=== PATIENT | female | born 1965 | race Caucasian/White ===

== ENCOUNTER 2018-08-19 16:45 | Emergency (ER) | payer SELFPAY ==
--- NOTE | 2018-08-19 17:56 | RAD REPORT ---
EXAM DESCRIPTION: RAD - Ankle Left 3 View -08/19/2018 5:46 pm CLINICAL HISTORY: Left ankle pain status post fall FINDINGS: Trimalleolar fracture. Fibular fracture fragments are comminuted and moderately displaced with angulation present at the fra cture site. Medial malleolus is avulsed. Tibiotalar dislocation present.
[2018-08-19] MEDS ORDERED: FENTANYL CITR 100 MCG/2 ML ONE (18:44)
[2018-08-19] MEDS ORDERED: ONDANSETRON 4 MG/2 ML VIAL ONE (18:44)
--- NOTE | 2018-08-19 19:18 | RAD REPORT ---
EXAM DESCRIPTION: RAD - Ankle Left 3 View -08/19/2018 7:12 pm CLINICAL HISTORY: Left ankle pain FINDINGS: A splint immobilizes the previously described trimalleolar fracture
--- NOTE | 2018-08-19 20:57 | EDPHYS ---
Physician Documentation [facility] Name: Katt Camarena Age: 53 yrs Sex: Female : 1965 Arrival Date: 08/19/2018 Time: 16:48 Bed 10 Private MD: ED Physician Chele Benavidez HPI: 08/19 18:15 This 53 yrs old Female presents to ER via Wheelchair with complaints of Ankle jmm Injury. 18:15 The patient presents with an injury, pain. Onset: The symptoms/episode began/occurred jmm acutely, just prior to arrival. This is a 53 yea rold female with no chronic medical conditions that presents to the ED with complaints of ankle pain after slipping when stepping out of her shower. patient states that she felt a pop. denies other injury. . 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 - Social history:: Smoking status: Patient/guardian denies using tobacco, Patient/guardian denies using alcohol. - Ebola Screening: : Patient negative for fever greater than or equal to 101.5 degrees Fahrenheit, and additional compatible Ebola Virus Disease symptoms Patient denies exposure to infectious person Patient denies travel to an Ebola-affected area in the 21 days before illness onset. ROS: 18:15 Constitutional: Negative for fever, chills, and weight loss, Cardiovascular: Negative jmm for chest pain, palpitations, and edema, Respiratory: Negative for shortness of breath, cough, wheezing, and pleuritic chest pain. 18:15 MS/extremity: Positive for injury or acute deformity, pain. 18:15 All other systems are negative. Exam: 18:15 Constitutional: This is a well developed, well nourished patient who is awake, alert, jmm and in no acute distress. Head/Face: atraumatic. Eyes: EOMI, no conjunctival erythema appreciated ENT: Moist Mucus Membranes Neck: Trachea midline, Supple Chest/axilla: Normal chest wall appearance and motion. Cardiovascular: Regular rate and rhythm. No edema appreciated Respiratory: Normal respirations, no respiratory distress appreciated Abdomen/GI: Non distended, soft 18:15 Musculoskeletal/extremity: swelling noted to the left ankle and foot, compartments are soft, NVI, full dorsalis pedis pulse. 18:15 Skin: Appearance: Color: normal in color. 18:15 Neuro: Orientation: is normal, Mentation: is normal, Memory: is normal. 18:15 Psych: Behavior/mood is pleasant, cooperative. Vital Signs: 17:30 BP 155 / 83; Pulse 73; Resp 18; Temp 98.0(TE); Pulse Ox 99% on R/A; Weight 88.45 kg; hj Height 5 ft. 1 in. (154.94 cm); Pain 10/10; 19:00 BP 156 / 75; Pulse 75; Resp 19; Temp 98.2; Pulse Ox 100% 2 lpm ; rr5 20:20 BP 152 / 65; Pulse 79; Resp 17; Pulse Ox 98% ; rr5 21:30 BP 158 / 75; Pulse 77; Resp 19; Pulse Ox 99% ; rr5 17:30 Body Mass Index 36.84 (88.45 kg, 154.94 cm) Procedures: 18:15 Splinting: Splint applied to left lateral ankle, lateral aspect of left foot, left jmm Achilles, left heel, left medial ankle, medial aspect of left foot, anterior aspect of left ankle and dorsum of left foot using posterior with stirrups. applied by myself. tech. post reduction film - reveals improved alignment, Examined by me, post splint application: neurovascular intact, 2+ distal pulses palpable, brisk capillary refill noted, Patient tolerated well. Reduction: of the left ankle, using traction, manipulation, Immobilized with posterior splint. Patient tolerated well. Post reduction film - reveals improved alignment. MDM: 18:15 Data reviewed: vital signs, nurses notes. Counseling: I had a detailed discussion with [facility] the patient and/or guardian regarding: the historical points, exam findings, and any diagnostic results supporting the discharge/admit diagnosis, radiology results, the need for outpatient follow up, to return to the emergency department if symptoms worsen or persist or if there are any questions or concerns that arise at home. 18:16 Patient medically screened. [facility] 20:22 ED course: I discussed the patient with Dr. Brown whom will see the patient in [facility] clinic on . patient is given compartment syndrome return precautions. Patient understood and agrees with the plan of care.. 08/19 17:32 Order name: Ankle Left 3 View XRAY; Complete Time: 18:15 08/19 18:52 Order name: Ankle Left 3 View XRAY; Complete Time: 19:25 [facility] 08/19 18:23 Order name: Saline Lock; Complete Time: 18:31 [facility] 08/19 20:22 Order name: Crutches; Complete Time: 21:35 [facility] 08/19 20:22 Order name: Misc. Order: restroom assist; Complete Time: 20:31 [facility] Administered Medications: 18:25 CANCELLED (Duplicate Order): morphine 4 mg IVP once [facility] 18:43 Drug: Zofran 4 mg Route: IVP; Site: left antecubital; iw 21:35 Follow up: Response: No adverse reaction rr5 18:43 Drug: fentaNYL (PF) 100 mcg Route: IVP; Site: left antecubital; iw 21:35 Follow up: Response: No adverse reaction rr5 Disposition: 08/19/18 20:56 Discharged to Home. Impression: Distal Tibia Fracture, Distal Fibular Fracture. - Condition is Stable. - Discharge Instructions: Ankle Fracture. - Prescriptions for Tylenol- Codeine #3 300-30 mg Oral Tablet - take 1 tablet by ORAL route every 6 hours As needed; 20 tablet. - Medication Reconciliation Form, Thank You Letter, Antibiotic Education, Prescription Opioid Use form. - Follow up: Christ Brown MD; When: 2 - 3 days; Reason: Recheck today's complaints, Continuance of care, Re-evaluation by your physician. Signatures: Dispatcher [employer] EDMS Ry Woods PA PA [facility] Ingrid Wilson RN RN Parker Whipple RN RN Micky Mccurdy RN RN rr5 Corrections: (The following items were deleted from the chart) 18:25 18:23 morphine 4 mg IVP once ordered. [facility] 21:37 20:56 08/19/2018 20:56 Discharged to Home. Impression: Distal Tibia Fracture; Distal rr5 Fibular Fracture. Condition is Stable. Forms are Medication Reconciliation Form, Thank You Letter, Antibiotic Education, Prescription Opioid Use. Follow up: Christ Brown; When: 2 - 3 days; Reason: Recheck today's complaints, Continuance of care, Re-evaluation by your physician. deo
--- NOTE | 2018-08-19 20:57 | ER ---
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 Transition of care: patient was not received from another setting of care. Onset of symptoms was August 19, 2018. Risk Assessment: Do you want to hurt yourself or someone else? Patient reports no desire to harm self or others. Initial Sepsis Screen: Does the patient meet any 2 criteria? No. Patient's initial sepsis screen is negative. Does the patient have a suspected source of infection? No. Patient's initial sepsis screen is negative. Care prior to arrival: None. 17:26 Method Of Arrival: Wheelchair 17:26 Acuity: MONIE 4 hj 18:30 Acuity: MONIE 3 iw Triage Assessment: 17:29 General: Appears in no apparent distress. uncomfortable, Behavior is calm, cooperative, hj appropriate for age. Pain: Complains of pain in L ankle. Musculoskeletal: Reports pain in L ankle. 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 - Social history:: Smoking status: Patient/guardian denies using tobacco, Patient/guardian denies using alcohol. - Ebola Screening: : Patient negative for fever greater than or equal to 101.5 degrees Fahrenheit, and additional compatible Ebola Virus Disease symptoms Patient denies exposure to infectious person Patient denies travel to an Ebola-affected area in the 21 days before illness onset. Screenin:29 Abuse screen: Denies threats or abuse. Denies injuries from another. Nutritional hj screening: No deficits noted. Tuberculosis screening: No symptoms or risk factors identified. Fall Risk None identified. Assessment: 18:43 Reassessment: Patient appears in no apparent distress at this time. Patient and/or iw family updated on plan of care and expected duration. Pain level reassessed. pt medicated for pain, Husam non destructive evaluation technician at bedside to set up ortho cart, at bedside. 19:15 General: Appears in no apparent distress. comfortable, Behavior is calm, cooperative, rr5 appropriate for age. Pain: Complains of pain in left leg Pain does not radiate. Quality of pain is described as aching, Pain began gradually, Is intermittent. Neuro: Level of Consciousness is awake, alert, obeys commands, Oriented to person, place, time, situation, Appropriate for age. Cardiovascular: Capillary refill < 3 seconds Patient's skin is warm and dry. Respiratory: Airway is patent Respiratory effort is even, unlabored, Respiratory pattern is regular, symmetrical. GI: No signs and/or symptoms were reported involving the gastrointestinal system. : No signs and/or symptoms were reported regarding the genitourinary system. EENT: No signs and/or symptoms were reported regarding the EENT system. Derm: Skin Skin temperature is warm. Musculoskeletal: Capillary refill < 3 seconds, Swelling present in left ankle lower leg splint applied with good capillary refill. 20:30 Reassessment: Patient appears in no apparent distress at this time. Patient is alert, rr5 oriented x 3, equal unlabored respirations, skin warm/dry/pink. maintained leg elevation done, no complaints made. Patient states symptoms have improved. 21:30 Reassessment: Patient appears in no apparent distress at this time. Patient is alert, rr5 oriented x 3, equal unlabored respirations, skin warm/dry/pink. discharge instruction given and explained without complaints made. walking with crutches demonstrated correctly Patient states feeling better. Patient states symptoms have improved. Vital Signs: 17:30 BP 155 / 83; Pulse 73; Resp 18; Temp 98.0(TE); Pulse Ox 99% on R/A; Weight 88.45 kg; hj Height 5 ft. 1 in. (154.94 cm); Pain 10/10; 19:00 BP 156 / 75; Pulse 75; Resp 19; Temp 98.2; Pulse Ox 100% 2 lpm ; rr5 20:20 BP 152 / 65; Pulse 79; Resp 17; Pulse Ox 98% ; rr5 21:30 BP 158 / 75; Pulse 77; Resp 19; Pulse Ox 99% ; rr5 17:30 Body Mass Index 36.84 (88.45 kg, 154.94 cm) ED Course: 16:48 Patient arrived in ED. rg4 17:28 Triage completed. hj 17:30 Arm band placed on left wrist. hj 17:31 Patient has correct armband on for positive identification. Placed in gown. Bed in low hj position. Call light in reach. Side rails up X 1. 17:44 X-ray completed. Patient tolerated procedure well. Patient moved back from radiology. ml 17:46 Ankle Left 3 View XRAY In Process Unspecified. EDMS 17:50 Ry Woods PA is PHCP. jmm 17:50 Chele Benavidez MD is Attending Physician. jmm 17:52 Ingrid Wilson, TOBIAS is Primary Nurse. iw 18:30 Inserted saline lock: 22 gauge in left antecubital area, using aseptic technique. iw 18:50 Assist provider with reduction of left ankle using manipulation, Performed by Ry GARCIA Immobilized with OCL splint, Patient tolerated well. 19:14 Ankle Left 3 View XRAY In Process Unspecified. EDMS 20:55 Christ Brown MD is Referral Physician. jmm 21:32 IV discontinued, intact, bleeding controlled, No redness/swelling at site. Pressure rr5 dressing applied. Administered Medications: 18:25 CANCELLED (Duplicate Order): morphine 4 mg IVP once jmm 18:43 Drug: Zofran 4 mg Route: IVP; Site: left antecubital; iw 21:35 Follow up: Response: No adverse reaction rr5 18:43 Drug: fentaNYL (PF) 100 mcg Route: IVP; Site: left antecubital; iw 21:35 Follow up: Response: No adverse reaction rr5 Outcome: 20:56 Discharge ordered by . jmm 21:35 Discharged to home via wheelchair, with crutches, with family. rr5 21:35 Condition: stable 21:35 Discharge instructions given to patient, Instructed on discharge instructions, follow up and referral plans. medication usage, crutch walking, Demonstrated understanding of instructions, follow-up care, medications, Prescriptions given X 1. 21:37 Patient left the ED. rr5 Signatures: Dispatcher [employer] EDMS Ry Woods PA PA jmm Williams, Irene, RN RN Adelina Harley Henry, RN RN Delores Crump rg4 Micky Mccurdy RN RN rr5 Corrections: (The following items were deleted from the chart) 17:32 17:30 Pulse 73bpm; Resp 18bpm; Pulse Ox 99% RA; Temp 98.0F Temporal; 88.45 kg; Height 5 hj ft. 1 in.; BMI: 36.8; Pain 10; hj
== END 2018-08-19 21:37 | disposition home or self-care (01) ==
LOC: ER 16:45
PROC: 0QSKXZZ Reposition Left Fibula, External Approach (ICD-10-PCS; principal; 2018-08-19)
PROC: 0QSHXZZ Reposition Left Tibia, External Approach (ICD-10-PCS; 2018-08-19)
DX: S82.302A Unspecified fracture of lower end of left tibia, initial encounter for closed fracture (principal); S82.832A Other fracture of upper and lower end of left fibula, initial encounter for closed fracture; W18.49XA Other slipping, tripping and stumbling without falling, initial encounter
CPT/HCPCS: 96374; 96375; 99284; J2405; J3010

== ENCOUNTER 2018-08-27 10:58 | Day surgery (SDC) | payer SELFPAY ==
[2018-08-26 12:24] LABS: Absolute Lymphocytes (CBC) 1.6 K/uL (0.7-4.9); Absolute Monocytes 0.4 K/uL (0.1-1.3); Absolute Neutrophil 4.5 K/uL (1.8-8.0); Basophils % 0.9 % (0-1.3); Eosinophils % 1.6 % (0-4.4); Hematocrit 41.3 % (36.0-45.0); MPV 10.4 fL (7.6-11.3); Monocytes % 6.1 % (3.3-12.3); RBC Red Blood Cell Count 4.53 M/uL (3.86-4.86)
[2018-08-26 12:41] LABS: Potassium 4.3 mmol/L (3.5-5.1)
[2018-08-27] MEDS ORDERED: Ringers Lactate 1,000 ML IV ONE ×2 (11:31→14:06)
[2018-08-27] MEDS ORDERED: CEFAZOLIN/SWI 1gm 1 GM/10 ML SYR ONE (11:31)
[2018-08-27] MEDS ORDERED: MIDAZOLAM HCL 2 MG/2 ML INJ ONE (11:59)
[2018-08-27] MEDS ORDERED: PROPOFOL 200 MG/20 ML VIAL IV ONE (11:59)
[2018-08-27] MEDS ORDERED: LIDOCAINE 2% MPF 5 ML VIAL ONE (11:59)
[2018-08-27] MEDS ORDERED: FENTANYL CITR 100 MCG/2 ML ONE ×2 (11:59→13:32)
[2018-08-27] MEDS ORDERED: DEXAMETHASONE 10 MG/ML VIAL ONE (12:03)
[2018-08-27] MEDS ORDERED: EPHEDRINE SULF 50 MG/ML VIAL ONE (13:29)
[2018-08-27] MEDS ORDERED: KETOROLAC 30 MG/ML INJ ONE (14:17)
[2018-08-27] MEDS ORDERED: MORPHINE 10 MG/ML VIAL ONE (14:27)
--- NOTE | 2018-08-27 14:50 | P.BOP ---
Preoperative diagnosis: left trimalleolar ankle fx with syndesmosis disruption Postoperative diagnosis: same Primary procedure: ORIF medial/lateral malleolus, placement of syndesmosis screw Estimated blood loss: 30 ccs Anesthesia: General Complications: None Transferred to: Recovery Room Condition: Good
--- NOTE | 2018-08-27 16:10 | RAD REPORT ---
EXAM DESCRIPTION: RAD - Ankle Left 2 View - 08/27/2018 3:59 pm CLINICAL HISTORY: Tibia and fibular fracture FINDINGS: Forty-six fluoroscopic spot image is submitted. Fluoroscopy time 1.2 minutes. Plates and screws affix fractures of the distal fibula and tibia. Syndesmotic screw placed Surgery performed by Dr. Brown
[2018-08-27] MEDS ORDERED: HYDROCODONE/APAP 5/325 MG TAB ONE (16:16)
--- NOTE | 2018-08-28 00:48 | OP ---
Date of Procedure: 08/27/2018 Surgeon: Christ Brown MD Preoperative Diagnosis: Left ankle comminuted intra-articular trimalleolar fracture with possible di sruption of syndesmosis. Postoperative Diagnosis: Trimalleolar ankle fracture with disruption of syndesmosis. Procedures: 1.Open reduction and internal fixation of medial malleolus. 2.Open reduction and internal fixation of lateral malleolus. 3.Placement of syndesmotic screw. Estimated Blood Loss: 20 cc. Complications: There were no complications. Pathology: No pathology specimens sent. Indications For Operation: Ms. Camarena is a 53-year-old female who unfortunately was getting out of the bath and fell and twisted her foot. She sustained a fracture dislocation of her ankle, which wa s seen in the emergency room where closed reduction was performed. She came to see me in my office a nd x-rays were reviewed, which revealed a trimalleolar ankle fracture with probable disruption of the tibiofibular ligament and syndesmosis. She had no sign of an open injury. Her skin was tight, sloane stanton told to return for. She had a skin check done yesterday as well as prior to the operation, cristofer clark demonstrated her skin now does wrinkle after elevation. All risks, benefits, and alternatives to open reduction and internal fixation and different methods of treating this have been discussed with the patient. She states she understands things presented and wished to proceed. Description Of Procedure: The patient was taken to the operating room and placed in supine position. General anesthesia was obtained by the staff. Following this, a well-padded tourniquet was placed on the superior left thigh. Left lower extremity was then prepped and draped in usual sterile fashio n for the procedure. The medial side was approached first. This is angled slightly anteriorly to al low for better visualization of what appeared to be an anterior clavicular fracture. This was an ant erior clavicular fracture and it was quite small. We were able to reduce it and place one pin, and w e were able to drill this with a cancellous screw. This did not appear to hold ideally, but there de finitely was not space for another screw to hold rotation. Therefore, decision was made to place a p in. Both of these implants were observed under direct vision. The pin was then hammered down. It a ppeared to hold the rotation and hold compression. The screw was slightly compressed as well. Atten tion was then turned to the lateral side. Lateral side has a very long fibular fracture, that is act ually segmental. A standard lateral incision was taken down carefully through the skin and soft tiss ues. Meticulous hemostasis being maintained using Bovie electrocautery. This leads down to the late ral aspect of the fibula. The more distal oblique fracture was addressed first. The fracture site w as cleaned and a clamp was placed. A lag screw was then placed to convert this three-part fracture i nto a two-part fracture. The screw appeared to hold well. Attention was then turned more distally w here she had a significant amount of comminution. However, she did have some areas of cortex, which could be apposed. This was reduced with a clamp, but we found that we could reduce it with a clamp w ith distal traction. An 8 hole plate was then selected and gently contoured while the reduction was provisionally held using lobster claw. The plate was then applied distally with 2 cancellous screws, and at this time the reduction was not ideal; however, because we had preplanned, we were able to th en use the plate as a distractor as well as the clamp and we were able to replace the proximal screws without difficulty holding out to length. X-ray of the mortise appeared to be an anatomic mortise. An external rotation test is deferred because of possibility of disrupting the medial aspect, but pu lling on the lateral malleolus with a towel clamp did not appear to yield much change from normal at the syndesmosis, but based on the fracture pattern a decision was made to place a syndesmotic screw t o help bulk the fixation because of the comminution as well as establish syndesmosis. This was place d without difficulty. A lot of attention was then paid to the posterior malleolus fracture. It is f airly large, however appeared to reduce quite well after anatomic reduction of the fibula. Some cons ideration was made for approaching it posteriorly. Also, some consideration was made for clamping an d placing an anterior-posterior screw, but at this point decision was made to treat this nonoperative ly. All the wounds were copiously irrigated and the skin was closed using interrupted 2-0 Vicryl sut ures, followed by rupesh. It should be noted that the initial lag screw on the lateral side was rep laced with a small lag screw of more appropriate size before closure. The patient was then placed an extremely well-padded sterile dressing, a posterior splint, as well as U. Awakened and taken to rec overy room in good condition. There were no complications. TASIA Voice ID: [id number] Report ID: [id number]
== END 2018-08-27 16:45 | disposition home or self-care (01) ==
LOC: OR 10:58
PROVIDERS: ATTEND Orthopaedic Surgery
PROC: 0QSH04Z Reposition Left Tibia with Internal Fixation Device, Open Approach (ICD-10-PCS; 2018-08-27)
PROC: 0QSH04Z Reposition Left Tibia with Internal Fixation Device, Open Approach (ICD-10-PCS; 2018-08-27)
PROC: 0QSK04Z Reposition Left Fibula with Internal Fixation Device, Open Approach (ICD-10-PCS; principal; 2018-08-27 12:00)
DX: S82.852A Displaced trimalleolar fracture of left lower leg, initial encounter for closed fracture (principal); W19.XXXA Unspecified fall, initial encounter
CPT/HCPCS: 36415; 80048; 84703; 85025; J0690; J1100; J2250; J2704; J3010

== ENCOUNTER 2020-12-11 11:18 | Emergency (ER) | payer SELFPAY ==
--- OUTSIDE RECORDS SUMMARY | 2020-12-11 11:21 | XMS REPORT | Continuity of Care Document ---
:1965 Author Organization [facility] t Address [address] [place] [address] Care Team Providers Name Role Phone Unavailable Unavailable Unavailable Problems This patient has no known problems. Allergies, Adverse Reactions, Alerts This patient has no known allergies or adverse reactions. Medications This patient has no known medications. Procedures This patient has no known procedures. Results Test Description Test Time Test Comments Results Result [facility] e Comments SCR MAMM BILATERAL 2020-08-24 YING CAD DIGITAL 16:40:50 Name: Peri : 1965 Sex: F - SCR MAMM BILATERAL YING CAD DIGITALBILATERAL DIGITAL SCREENING MAMMOGRAM 3D/2D WITH CAD: 08/19/2020LINICAL: Asymptomatic. Digital breast tomosynthesis was performed in addition to routine CC and MLO views. Current mammographic images were evaluated by Tk20 ImageProfind CAD (computed aided detection) software. No prior exams were available for comparison. The tissue of both breasts is heterogeneously dense. This may lower the sensitivity of mammography. No suspicious mass, architectural distortion, malignant type calcification, or lymph node abnormality detected. IMPRESSION: NEGATIVEThere is no mammographic evidence of malignancy. Resume annual screening mammography in one year. Nguyen elena/namita:08/24/2020 16:40:50 Director Life Sales: Alice Lincoln MM, [facility] Mammographyletter sent: BIRADS 1-2 Normal Mammogram BI-RADS: 1 Negative
[2020-12-11] MEDS ORDERED: HYDROCODONE/CHLORPHEN 5 ML/OSYR ONE (11:58)
--- NOTE | 2020-12-11 13:26 | RAD REPORT ---
EXAM DESCRIPTION: RAD - Chest Single View - 12/11/2020 1:01 pm CLINICAL HISTORY: COUGH Chest pain. COMPARISON: No comparisons FINDINGS: Portable technique limits examination quality. Interstitial lung markings are mildly prominent suggesting viral infection or bronchitis. The heart i s normal in size. No displaced fractures.
--- NOTE | 2020-12-11 13:44 | ER ---
Nurse's Notes [facility] Name: Katt Camarena Age: 55 yrs Sex: Female : 1965 Arrival Date: 12/11/2020 Time: 11:19 Bed 6 Private MD: Diagnosis: Pneumonia, unspecified organism Presentation: 12/11 11:27 Chief complaint: Patient states: Cough, fever since night. Fever up to 100.8 ll1 at home. She has been on Bactrim since Saturday for UTI. States today is her last pill, but feels like the UTI isn't gone yet. Coronavirus screen: Client denies travel out of the [place] in the last 14 days. chills, cough unrelated to allergies, difficulty breathing, fatigue, fever, headache, shaking with chills, shortness of breath, Client presents with at least one sign or symptom that may indicate coronavirus-19. Standard/surgical mask placed on the client. Ebola Screen: Patient denies travel to an Ebola-affected area in the 21 days before illness onset. Initial Sepsis Screen: Does the patient meet any 2 criteria? RR > 20 per min. No. Patient's initial sepsis screen is negative. Does the patient have a suspected source of infection? Yes: Productive cough/pneumonia. Initial Sepsis Screen: Does the patient meet any 2 criteria? Does the patient have a suspected source of infection? Yes: Dysuria/Frequency/Urgency/UTI. Risk Assessment: Do you want to hurt yourself or someone else? Patient reports no desire to harm self or others. Onset of symptoms was December 08, 2020. 11:27 Method Of Arrival: Ambulatory ll1 11:27 Acuity: MONIE 3 ll1 Historical: - Allergies: 11:26 No Known Allergies; ll1 - PMHx: 11:26 None; ll1 - PSHx: 11:26 ankle SX; ll1 - Immunization history:: Client reports having NOT received the Covid vaccine. Flu vaccine is not up to date. - Social history:: Smoking status: Patient denies any tobacco usage or history of. - Family history:: not pertinent. - Hospitalizations: : No recent hospitalization is reported. Screenin:40 Abuse screen: Denies threats or abuse. Denies injuries from another. Nutritional ph screening: No deficits noted. Tuberculosis screening: No symptoms or risk factors identified. Fall Risk None identified. Assessment: 11:39 General: Appears in no apparent distress. uncomfortable, Behavior is calm, cooperative, ph appropriate for age. Pain: Denies pain. Neuro: Level of Consciousness is awake, alert, obeys commands, Oriented to person, place, time, situation. Cardiovascular: Capillary refill < 3 seconds in bilateral fingers Patient's skin is warm and dry. Respiratory: Reports cough that is Airway is patent Respiratory effort is even, unlabored, Respiratory pattern is regular. GI: No signs and/or symptoms were reported involving the gastrointestinal system. Patient currently denies diarrhea, nausea, vomiting. : Reports burning with urination, urinary frequency, currently taking antibiotics for UTI. Derm: Skin is intact, Skin is pink, warm \T\ dry. 13:08 Reassessment: Patient appears in no apparent distress at this time. Patient and/or ph family updated on plan of care and expected duration. Pain level reassessed. Patient is alert, oriented x 3, equal unlabored respirations, skin warm/dry/pink. Vital Signs: 11:27 BP 136 / 62; Pulse 80; Resp 22; Temp 98.8(O); Pulse Ox 100% on R/A; Weight 88.45 kg; ll1 Height 5 ft. 1 in. (154.94 cm); Pain 0/10; 12:08 BP 123 / 72; Pulse 100; Resp 22; Pulse Ox 98% ; sv 13:09 BP 123 / 67; Pulse 98; Resp 20; Pulse Ox 100% on R/A; ph 11:27 Body Mass Index 36.84 (88.45 kg, 154.94 cm) ll1 ED Course: 11:19 Patient arrived in ED. ds1 11:19 Dallin Soler MD is Attending Physician. rn 11:21 Any Tobar, TOBIAS is Primary Nurse. ph 11:26 Arm band placed on Patient placed in an exam room, on a stretcher. ll1 11:30 Triage completed. ll1 11:35 Flu Sent. ph 11:41 Patient has correct armband on for positive identification. Bed in low position. Call ph light in reach. Side rails up X 1. Pulse ox on. NIBP on. Door closed. Noise minimized. 13:01 XRAY Chest (1 view) In Process Unspecified. EDMS 13:55 No provider procedures requiring assistance completed. Patient did not have IV access sv during this emergency room visit. Administered Medications: 11:39 Drug: Tussionex Pennkinetic ER (chlorpheniramine-hydrocodone) Suspension 5 ml Route: PO;ph 13:55 Follow up: Response: No adverse reaction sv 13:55 Drug: LevaQUIN (levofloxacin) 500 mg Route: PO; sv 13:55 Follow up: Response: Medication administered at discharge. sv Outcome: 13:43 Discharge ordered by . rn 13:56 Patient left the ED. sv Signatures: Dispatcher [employer] EDMS Maria Alejandra Ordoñez RN RN Elisa Vivas ds1 Dallin Soler MD MD rn Hall, Patricia, RN RN José Anders RN RN 1 Corrections: (The following items were deleted from the chart) 12:21 11:35 CORONAVIRUS+MRKIMBER.KELSEY drawn and sent. [facility]
--- NOTE | 2020-12-11 13:44 | EDPHYS ---
Physician Documentation [facility] Name: Katt Camarena Age: 55 yrs Sex: Female : 1965 Arrival Date: 12/11/2020 Time: 11:19 Bed 6 Private MD: ED Physician Dallin Soler HPI: 12/11 11:37 This 55 yrs old Female presents to ER via Ambulatory with complaints of rn Cough, Fever. 11:37 The patient or guardian reports cough, that is intermittent, described as moderate, rn with no sputum. Onset: The symptoms/episode began/occurred 3 day(s) ago. Severity of symptoms: At their worst the symptoms were moderate, in the emergency department the symptoms are unchanged. Modifying factors: The symptoms are alleviated by nothing, the symptoms are aggravated by nothing. Associated signs and symptoms: Pertinent positives: fever, chills, Pertinent negatives: chest pain, diarrhea, rhinorrhea, sore throat, vomiting. The patient has not experienced similar symptoms in the past. The patient has not recently seen a physician. Reports cough, fever, chills, for 3 days, no chronic lung problems, not covid vaccinated. No chest pain/hemoptysis/vomiting/diarrhea. . Historical: - Allergies: 11:26 No Known Allergies; ll1 - PMHx: 11:26 None; ll1 - PSHx: 11:26 ankle SX; ll1 - Immunization history:: Client reports having NOT received the Covid vaccine. Flu vaccine is not up to date. - Social history:: Smoking status: Patient denies any tobacco usage or history of. - Family history:: not pertinent. - Hospitalizations: : No recent hospitalization is reported. 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 Exam: 11:37 Constitutional: This is a well developed, well nourished patient who is awake, alert, rn and in no acute distress. + frequent coughing. Head/Face: Normocephalic, atraumatic. Eyes: Periorbital areas with no swelling, redness, or edema. ENT: No stridor Neck: Trachea midline, no masses palpated, and no cervical lymphadenopathy. Supple, full range of motion without nuchal rigidity, or vertebral point tenderness. No Meningismus. Cardiovascular: Regular rate and rhythm. No pulse deficits. Respiratory: + mild tachypnea, no retractions Abdomen/GI: soft, non-tender Skin: Warm, dry MS/ Extremity: Pulses equal, no cyanosis. Neuro: Awake and alert, GCS 15 Vital Signs: 11:27 BP 136 / 62; Pulse 80; Resp 22; Temp 98.8(O); Pulse Ox 100% on R/A; Weight 88.45 kg; ll1 Height 5 ft. 1 in. (154.94 cm); Pain 0/10; 12:08 BP 123 / 72; Pulse 100; Resp 22; Pulse Ox 98% ; sv 13:09 BP 123 / 67; Pulse 98; Resp 20; Pulse Ox 100% on R/A; ph 11:27 Body Mass Index 36.84 (88.45 kg, 154.94 cm) ll1 MDM: 11:19 Patient medically screened. rn 13:41 Differential Diagnosis: Bronchitis Influenza Upper Respiratory Infection Viral Syndrome rn Pneumonia Other COVID. Data reviewed: vital signs, nurses notes, lab test result(s), radiologic studies, plain films, and as a result, I will discharge patient. Counseling: I had a detailed discussion with the patient and/or guardian regarding: the historical points, exam findings, and any diagnostic results supporting the discharge/admit diagnosis, lab results, radiology results, the need for outpatient follow up, to return to the emergency department if symptoms worsen or persist or if there are any questions or concerns that arise at home. Response to treatment: the patient's symptoms have mildly improved after treatment, and as a result, I will discharge patient. Special discussion: I discussed with the patient/guardian in detail that at this point there is no indication for admission to the hospital. It is understood, however, that if the symptoms persist or worsen the patient needs to return immediately for re-evaluation. ED course: Xray chest without pneumonia, no oxygen requirement, covid and flu neg. CXR shows more like bronchitis. . 12/11 11:33 Order name: Flu; Complete Time: 13:12 rn 12/11 11:33 Order name: XRAY Chest (1 view); Complete Time: 13:36 rn 12/11 13:14 Order name: SARS-COV-2 RT PCR; Complete Time: 13:36 EDMS 12/11 13:15 Order name: COVID-19 : Document "Date of Symptom Onset" if Symptomatic. ss Administered Medications: 11:39 Drug: Tussionex Pennkinetic ER (chlorpheniramine-hydrocodone) Suspension 5 ml Route: PO;ph 13:55 Follow up: Response: No adverse reaction sv 13:55 Drug: LevaQUIN (levofloxacin) 500 mg Route: PO; sv 13:55 Follow up: Response: Medication administered at discharge. 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 EDPA EDPA
[2020-12-11 14:00] VITALS: TEMP 98.8
[2020-12-11 14:03] VITALS: BP 123/67; O2SAT 100
[2020-12-11] MEDS ORDERED: levoFLOXacin 500 MG TAB ONE (14:12)
== END 2020-12-11 13:56 | disposition home or self-care (01) ==
LOC: ER 11:18
DX: J18.9 Pneumonia, unspecified organism (principal); Z20.822 Contact with and (suspected) exposure to COVID-19
CPT/HCPCS: 71045; 87804; 99284; U0003